=== PATIENT | male | born 1980 | race Caucasian/White ===

== ENCOUNTER 2020-11-21 09:50 | Emergency (ER) | payer SELFPAY ==
[2020-11-21] MEDS ORDERED: KETOROLAC 30 MG/ML INJ ONE (10:31)
--- NOTE | 2020-11-21 11:02 | RAD REPORT ---
EXAM DESCRIPTION: RAD - Foot Left 3 View - 11/21/2020 10:12 am CLINICAL HISTORY: steppe don nail, base of 2nd toe COMPARISON: No comparisonsNo comparisons FINDINGS: No acute fracture. No malalignment. Calcaneal spurring. IMPRESSION: No acute osseous abnormality involving the left foot. No radiopaque foreign body.
--- NOTE | 2020-11-21 11:05 | ER ---
Nurse's Notes [facility] Name: Froilan Gomez Age: 39 yrs Sex: Male : 1980 Arrival Date: 11/21/2020 Time: 09:51 Bed 19 Private MD: Diagnosis: Puncture wound without foreign body, left foot Presentation: 11/21 09:52 Chief complaint: Patient states: stepped on a nail yesterday while wearing shoes. Pt ss reports that the nail came out of his foot and stayed in the board, however his pain is worse today. No redness or swelling noted to area. Coronavirus screen: Client denies travel out of the [place] in the last 14 days. Ebola Screen: Patient denies exposure to infectious person. Patient denies travel to an Ebola-affected area in the 21 days before illness onset. Initial Sepsis Screen: Does the patient meet any 2 criteria? No. Patient's initial sepsis screen is negative. Does the patient have a suspected source of infection? No. Patient's initial sepsis screen is negative. Risk Assessment: Do you want to hurt yourself or someone else? Patient reports no desire to harm self or others. Onset of symptoms was November 20, 2020. 09:52 Method Of Arrival: Ambulatory ss 09:52 Acuity: [place] 4 ss Historical: - Allergies: 10:02 No Known Allergies; ss - Home Meds: 10:02 None [Active]; ss - PMHx: 10:02 None; ss - PSHx: 10:02 None; ss - Immunization history:: Last tetanus immunization: unknown. - Social history:: Smoking status: Patient reports the use of cigarette tobacco products, smokes one-half pack cigarettes per day. - Family history:: not pertinent. - Hospitalizations: : No recent hospitalization is reported. Screenin:13 Abuse screen: Denies threats or abuse. Nutritional screening: No deficits noted. ll1 Tuberculosis screening: No symptoms or risk factors identified. Fall Risk Ambulatory Aid- Crutches/Cane/Walker (15 pts). Gait- Impaired (20 pts.). Total Love Fall Scale indicates Low Risk Score (25-44 pts). Fall prevention measures have been instituted. Side Rails Up X 2 Frequent Obs/Assesments occuring As available Patient and Family Educated on Fall Prevention Program and strategies. Assessment: 10:11 General: Appears uncomfortable, Behavior is calm, cooperative, appropriate for age. ll1 Pain: Complains of pain in L foot Quality of pain is described as aching, Aggravated by increased activity, weight bearing. Derm: puncture wound to sole of L foot. No active bleeding or drainage. Redness to top of L foot noted. PMS intact. Reports pain. Musculoskeletal: Circulation, motion, and sensation intact. Capillary refill < 3 seconds, Range of motion: intact in all extremities, Tenderness present in L foot Reports pain in L foot. Vital Signs: 09:52 BP 115 / 83; Pulse 94; Resp 16; Temp 98.6(TE); Pulse Ox 98% on R/A; Weight 131.54 kg; ss Height 6 ft. 0 in. (182.88 cm); Pain 10; 09:52 Body Mass Index 39.33 (131.54 kg, 182.88 cm) ss ED Course: 09:51 Patient arrived in ED. ds1 09:52 Benjamín Rosenberg MD is Attending Physician. rn 09:52 Yanique Moe RN is Primary Nurse. ll1 09:52 Arm band placed on Patient placed in an exam room, on a stretcher. ll1 10:02 Triage completed. ss 10:12 XRAY Foot LEFT 3 View In Process Unspecified. EDMS 10:13 Patient has correct armband on for positive identification. Bed in low position. Call ll1 light in reach. Side rails up X 1. Pulse ox on. NIBP on. 11:13 No provider procedures requiring assistance completed. Patient did not have IV access ss during this emergency room visit. Administered Medications: 10:11 Drug: Ketorolac 30 mg Route: IM; Site: left deltoid; ll1 11:14 Follow up: Response: No adverse reaction ss Outcome: 11:04 Discharge ordered by . rn 11:13 Discharged to home ambulatory, via wheelchair. ss 11:13 Condition: good 11:13 Discharge instructions given to patient, Instructed on discharge instructions, follow up and referral plans. Demonstrated understanding of instructions, follow-up care. 11:13 Patient left the ED. ss Signatures: Dispatcher [employer] EDSD Angely Ellison ds1 Benjamín Rosenberg MD MD rn Smirch, Shelby, RN RN Abhi, Lynsay, RN RN ll1
--- NOTE | 2020-11-21 11:05 | EDPHYS ---
Physician Documentation [facility] [place], [place] Name: Froilan Gomez Age: 39 yrs Sex: Male : 1980 Arrival Date: 11/21/2020 Time: 09:51 Bed 19 Private MD: ED Physician Benjamín Rosenberg HPI: 11/21 09:58 This 39 yrs old Male presents to ER via Unassigned with complaints of Nail In rn Foot. 09:58 The patient presents with an injury, pain, a puncture wound, from a nail. The rn complaints affect the left foot. Onset: The symptoms/episode began/occurred yesterday. Modifying factors: The symptoms are alleviated by elevation of extremity, the symptoms are aggravated by weight bearing, wearing shoes. Associated signs and symptoms: Pertinent negatives: fever, rash, weakness. Severity of symptoms: At their worst the symptoms were moderate, in the emergency department the symptoms are unchanged. The patient has not experienced similar symptoms in the past. Patient reports accidentally stepped on a nail that was in a board, happened yesterday, nail went through shoe, stepped off of the nail and came out easily. Reports pain worse today. No fever. Does not feel like anything is still in foot.. Historical: - Allergies: 10:02 No Known Allergies; ss - Home Meds: 10: None [Active]; ss - PMHx: 10:02 None; ss - PSHx: 10:02 None; ss - Immunization history:: Last tetanus immunization: unknown. - Social history:: Smoking status: Patient reports the use of cigarette tobacco products, smokes one-half pack cigarettes per day. - Family history:: not pertinent. - Hospitalizations: : No recent hospitalization is reported. ROS: 10:01 Constitutional: Negative for fever, chills, and weight loss, MS/Extremity: Positive for rn puncture wound to left foot Skin: Positive for puncture wound to bottom of left foot Neuro: Negative for weakness Exam: 10:01 Constitutional: This is a well developed, well nourished patient who is awake, alert, rn and in no acute distress. Skin: Warm, dry, no signs of cellulitis. MS/ Extremity: Pulses equal, no cyanosis. Neurovascular intact. Full, normal range of motion. Equal circumference. Small puncture wound to base of left second toe on plantar surface, no erythema, mild bruising, no palpable foreign body, puncture wound is already closed and appears to have been a small gauge. Vital Signs: 09:52 BP 115 / 83; Pulse 94; Resp 16; Temp 98.6(TE); Pulse Ox 98% on R/A; Weight 131.54 kg; ss Height 6 ft. 0 in. (182.88 cm); Pain 10; 09:52 Body Mass Index 39.33 (131.54 kg, 182.88 cm) ss MDM: 09:52 Patient medically screened. rn 11:04 Differential diagnosis: fracture, penetrating trauma. Data reviewed: vital signs, rn nurses notes, radiologic studies, plain films, and as a result, I will discharge patient. Test interpretation: by ED physician or midlevel provider: plain radiologic studies, X-ray left foot negative for fracture or foreign body. Counseling: I had a detailed discussion with the patient and/or guardian regarding: the historical points, exam findings, and any diagnostic results supporting the discharge/admit diagnosis, radiology results, the need for outpatient follow up, to return to the emergency department if symptoms worsen or persist or if there are any questions or concerns that arise at home. Response to treatment: the patient's symptoms have mildly improved after treatment, and as a result, I will discharge patient. Special discussion: I discussed with the patient/guardian in detail that at this point there is no indication for admission to the hospital. It is understood, however, that if the symptoms persist or worsen the patient needs to return immediately for re-evaluation. 11/21 09:57 Order name: XRAY Foot LEFT 3 View; Complete Time: 11:03 rn Administered Medications: 10:11 Drug: Ketorolac 30 mg Route: IM; Site: left deltoid; ll1 11:14 Follow up: Response: No adverse reaction ss Disposition Summary: 11/21/20 11:04 Discharge Ordered Location: Home rn Problem: new rn Symptoms: have improved rn Condition: Stable rn Diagnosis - Puncture wound without foreign body, left foot rn Followup: rn - With: Private Physician - When: As needed - Reason: Recheck today's complaints, Re-evaluation by your physician Discharge Instructions: - Discharge Summary Sheet rn - Puncture Wound rn Forms: - Medication Reconciliation Form rn - Thank You Letter rn - Antibiotic product development intern - Prescription Opioid Use rn Prescriptions: - Augmentin 875-125 mg Oral Tablet - take 1 tablet by ORAL route every 12 hours for 10 days; 20 tablet; Refills: 0, rn Product Selection Permitted - Doxycycline Hyclate 100 mg Oral Tablet - take 1 tablet by ORAL route every 12 hours; 20 tablet; Refills: 0, Product rn Selection Permitted Signatures: Dispatcher [employer] Benjamín Ford MD MD rn Smirch, Shelby, RN RN ss Yanique Moe RN RN ll1
[2020-11-21 11:20] VITALS: BP 115/83; TEMP 98.6; O2SAT 98
== END 2020-11-21 11:13 | disposition home or self-care (01) ==
LOC: ER 09:50
DX: S91.332A Puncture wound without foreign body, left foot, initial encounter (principal); W45.0XXA Nail entering through skin, initial encounter; F17.210 Nicotine dependence, cigarettes, uncomplicated
CPT/HCPCS: 96372; 99283